=== PATIENT | female | born 1985 | race Caucasian/White ===

== ENCOUNTER 2024-01-17 09:15 | Emergency (ER) | payer OTHER, SELFPAY ==
[2024-01-17] VITALS (7 sets, daily range): BP systolic 110–146; BP diastolic 43–94; PULSE 80–98; RESP 11–20; TEMP 36.3; O2SAT 99–100
--- NOTE | ~2024-01-17 | CT_ITS ---
EXAMINATION: CTA chest PE protocol DATE: 01/17/2024 12:26 INDICATION: Chest pain and shortness of breath TECHNIQUE: Computed tomography (CT) pulmonary angiogram of the chest was performed with 100 mL Omnipa que-350 intravenous contrast. Additional 3D reconstructions utilizing coronal maximum intensity proje ction (MIP) were performed. Automated exposure control and iterative reconstruction technique were em ployed. The dose-length product was 503.84 mGy-cm. COMPARISON: None FINDINGS: No pulmonary embolism. There is a band of discoid atelectasis at the posterior medial right upper lob e. No pneumonia, pulmonary edema, pleural effusion or pneumothorax. Heart size is normal. No pericard ial effusion. Thoracic aorta is normal in caliber with no dissection. No pathologically enlarged thor acic lymphadenopathy. Small sliding-type hiatal hernia. Status post cholecystectomy. Mild upper thora cic levocurvature with mild spondylosis. IMPRESSION: 1. No pulmonary embolism or other acute cardiopulmonary disease. 2. Small sliding-type hiatal hernia. Reviewed, dictated and finalized at location A.
--- NOTE | ~2024-01-17 | XR_ITS ---
EXAMINATION: XR chest 2V DATE: 01/17/2024 09:46 INDICATION: Chest pain. TECHNIQUE: Frontal and lateral views of the chest were obtained. COMPARISON: None. FINDINGS: There is no pneumonia, pleural effusion, or pneumothorax. The heart size is normal. IMPRESSION: 1. No acute cardiopulmonary disease. Reviewed, dictated and finalized at location A.
--- NOTE | 2024-01-17 09:17 | ECG_ITS ---
Measurements Intervals [place] Rate: 97 P: 59 MD: 147 QRS: 66 QRSD: 86 T: 33 QT: 367 QTc: 467 Interpretive Statements SINUS RHYTHM POSSIBLE LEFT ATRIAL ENLARGEMENT BORDERLINE ST-T WAVE ABNORMALITY- ANT/INF LEADS BORDERLINE ECG NO PREVIOUS ECG AVAILABLE FOR COMPARISON Electronically Signed On 01-17-2024 9:36:45 CDT by Tank Keenan D.O.
[2024-01-17 09:36] LABS: Basophils Absolute Auto 0.1 K/mm3 (0.0-0.1); Basophils Percent Auto 0.6 % (0.2-1.2); Eosinophils Absolute Auto 0.4 K/mm3 (0-0.3); Eosinophils Percent Auto 3.3 % (0-4.4); Hematocrit 34.1 % (37.0-47.0); Hemoglobin 11.2 g/dL (12.0-15.0); Immature Granulocyte Absolute 0.08 K/mm3 (0.00-0.031); Immature Granulocyte Percent A 0.8 % (0-0.5); Lymphocytes Absolute Auto 3.03 K/mm3 (0.9-3.2); Lymphocytes Percent Auto 28.9 % (18.3-44.2); Mean Corpuscular HGB Conc 32.8 g/dl (32-36); Mean Corpuscular Hemoglobin 30.5 pg (26-34); Mean Corpuscular Volume 92.9 fl (80-100); Mean Platelet Volume 10.7 fl (7.4-10.4); Monocytes Absolute Auto 0.6 K/mm3 (0.1-0.6); Monocytes Percent Auto 5.3 % (2.6-8.5); Neutrophils Absolute Auto 6.4 K/mm3 (1.3-6.7); Neutrophils Percent Auto 61.1 % (45.5-73.1); Platelet Count Result 320 k/mm3 (150-375); Red Blood Count 3.67 M/mm3 (4.2-5.4); White Blood Count 10.5 K/mm3 (4.5-10.0)
[2024-01-17 09:48] LABS: INR 0.9; Partial Thromboplastin Time 31.1 Seconds (22.3-36.8); Prothrombin Time 12.2 Seconds (11.1-14.7)
[2024-01-17 09:53] LABS: Alanine Aminotransferase 37 U/L (6-35); Albumin Level 3.6 g/dL (3.5-5.1); Alkaline Phosphatase 96 U/L (38-126); Anion Gap 7 mmol/L (4-12); Aspartate Amino Transferase 53 U/L (14-36); Bilirubin,Total 0.4 mg/dL (0.2-1.3); Blood Urea Nitrogen 10 mg/dL (7-17); Carbon Dioxide 22 mmol/L (22-30); Chloride 106 mmol/L (98-107); Estimated CRCL calculation 114 ml/min; Estimated Glomerular Filt Rate > 60; Glucose 164 mg/dL (65-110); Lipase 72 U/L (23-300); Sodium 135 mmol/L (137-145)
[2024-01-17 10:02] LABS: Troponin I < 0.012 ng/mL (0.000-0.034)
--- NOTE | 2024-01-17 10:07 | ED.CHESTPAIN ---
HPI - Chest Pain General Chief Complaint: Chest Pain Stated Complaint: chest heaviness Time Seen by Provider: 01/17/24 10:03 Source: patient Mode of arrival: EMS Limitations: no limitations History of Present Illness HPI narrative: This is a 38 year old female that presents to the ER for chest pain. Reports she woke up this morning with chest discomfort. Reports associated shortness of breath. She has history of methamphetamine abuse and is currently in [place]. Reports some lower extremity edema. Denies fever, cough. Related Data Allergies Allergy/AdvReac Type Severity Reaction Status Date / Time Penicillins Allergy Mild Unknown Verified 01/17/24 13:41 Review of Systems Review of Systems: CONSTITUTIONAL: Denies fever CARDIOVASCULAR: Reports chest pain, and edema. RESPIRATORY: Reports dyspnea. All systems reviewed & are unremarkable except as noted in HPI and below PMFSH Past Medical History Medical History (Updated 01/17/24 @ 14:41 by Melissa Matthew PA-C) History of hypertension Social History Social History (Updated 01/17/24 @ 14:42 by Melissa Matthew PA-C) Substance use: former Substance use type: amphetamines Exam Narrative: GENERAL: Well-appearing, well-nourished, and in no acute distress. HEAD: Normocephalic, atraumatic. EYES: EOMI. CHEST: Clear to auscultation. No respiratory distress. No wheezes rales or rhonchi. Tender to palpation of the chest wall HEART: Regular rate and rhythm. No murmur heard. Normal peripheral pulses. EXTREMITIES: Normal range of motion. No edema. SKIN: Warm, dry, no rash. NEURO: No focal deficits. Alert and oriented x3. PSYCH: Normal mood and affect Course Course Emergency Course: Patient updated on her workup. Resting comfortably after Toradol Vital Signs Vital signs: Vital Signs Pulse Rate 98 01/17/24 09:18 Respiratory Rate 20 01/17/24 09:18 Blood Pressure 135/94 H 01/17/24 09:18 Pulse Oximetry 100 01/17/24 09:18 Oxygen Delivery Room Air 01/17/24 09:18 Pulse Rate 84 01/17/24 11:05 Respiratory Rate 13 01/17/24 11:05 Blood Pressure 146/70 H 01/17/24 09:31 Pulse Oximetry 99 01/17/24 11:05 Oxygen Delivery Room Air 01/17/24 09:52 MDM - Chest Pain MDM Narrative Medical decision making narrative: Patient presents to the emergency department for chest pain ongoing since this morning. She is afebrile and nontoxic appearing. Her vitals are stable. Given a dose of nitro and aspirin EN route without much change. She did receive a dose of Toradol in the ED with relief. Palpation of the area does reproduce her pain. CBC with mild leukocytosis to 10.5. Also shows normocytic anemia with hemoglobin of 11.2. Metabolic panel with mild transaminitis. Lipase is normal. EKG without acute ST changes, baseline and 3 hour troponin are negative. D-dimer elevated, CTA of the chest PE obtained. No evidence for PE or acute cardiopulmonary abnormality. Patient was updated on her workup and agrees with plan of care. Her heart score is 2. She is to follow up with primary provider. She was given warnings to return to the ER Differential Diagnosis Differential diagnosis: Likely stable angina, atypical chest pain, costochondritis and other (pneumonia, PE) Lab Data Attestation: I reviewed the patient's lab results. 01/17/24 09:30 01/17/24 09:30 Labs: Lab Results 01/17/24 01/17/24 Range/Units 09:30 12:38 WBC 10.5 H (4.5-10.0) K/mm3 RBC 3.67 L (4.2-5.4) M/mm3 Hgb 11.2 L (12.0-15.0) g/dL Hct 34.1 L (37.0-47.0) % MCV 92.9 (80-100) fl MCH 30.5 (26-34) pg MCHC 32.8 (32-36) g/dl RDW 14.0 (11.5-14.5) % Plt Count 320 (150-375) k/mm3 MPV 10.7 H (7.4-10.4) fl Immature Gran % (Auto) 0.8 H (0-0.5) % Neut % (Auto) 61.1 (45.5-73.1) % Lymph % (Auto) 28.9 (18.3-44.2) % [place] % (Auto) 5.3 (2.6-8.5) % Eos % (Auto) 3.3 (0-4.4) % Baso % (Auto) 0.6
[2024-01-17 11:19] LABS: NT Pro B Type Natriuretic Pept 216 pg/mL (19.9-100)
[2024-01-17 12:08] LABS: D Dimer 0.59 ug/mL (<0.48)
--- NOTE | 2024-01-17 12:26 | ECG_ITS ---
Measurements Intervals [place] Rate: 89 P: 56 [place]: 157 QRS: 69 QRSD: 88 T: 34 QT: 381 QTc: 464 Interpretive Statements SINUS RHYTHM BASELINE ARTIFACT- III NORMAL ECG COMPARED TO ECG 01/17/2024 09:23:55 T-WAVE ABNORMALITY NOW PRESENT Electronically Signed On 01-17-2024 12:54:44 CDT by Tank Keenan D.O.
[2024-01-17 13:07] LABS: Troponin I < 0.012 ng/mL (0.000-0.034)
[2024-01-17] MEDS: KETOROLAC 15 MG/ML VIAL (*BKC) IV PUSH (13:42)
== END 2024-01-17 14:49 | disposition home or self-care (01) ==
PROVIDERS: Emergency Medicine; Emergency Provider Physician Assistant; PCP Internal Medicine Infectious Disease
DX: R07.89 Other chest pain (principal); I10 Essential (primary) hypertension; F15.10 Other stimulant abuse, uncomplicated; K44.9 Diaphragmatic hernia without obstruction or gangrene
CPT/HCPCS: 36415; 71046; 71275; 80053; 83690; 83880; 84484; 85025; 85380; 85610; 85730; 93005; 96374; 99284; J1885; Q9967

== ENCOUNTER 2024-03-04 21:27 | Emergency (ER) | payer OTHER, SELFPAY ==
[2024-03-04 21:45] VITALS: BP 128/103; PULSE 81; RESP 16; TEMP 36.5; O2SAT 100
[2024-03-04 22:24] LABS: Basophils Absolute Auto 0.1 K/mm3 (0.0-0.1); Basophils Percent Auto 0.4 % (0.2-1.2); Eosinophils Absolute Auto 0.3 K/mm3 (0-0.3); Eosinophils Percent Auto 2.4 % (0-4.4); Hemoglobin 12.2 g/dL (12.0-15.0); Immature Granulocyte Absolute 0.04 K/mm3 (0.00-0.031); Immature Granulocyte Percent A 0.3 % (0-0.5); Lymphocytes Percent Auto 38.8 % (18.3-44.2); Mean Corpuscular Hemoglobin 29.5 pg (26-34); Mean Corpuscular Volume 89.4 fl (80-100); Mean Platelet Volume 10.9 fl (7.4-10.4); Monocytes Absolute Auto 0.7 K/mm3 (0.1-0.6); Monocytes Percent Auto 5.6 % (2.6-8.5); Neutrophils Absolute Auto 6.6 K/mm3 (1.3-6.7); Neutrophils Percent Auto 52.5 % (45.5-73.1); Platelet Count Result 376 k/mm3 (150-375); Red Blood Count 4.14 M/mm3 (4.2-5.4); Red Cell Distribution Width 13.1 % (11.5-14.5); White Blood Count 12.6 K/mm3 (4.5-10.0)
--- NOTE | 2024-03-04 22:26 | ED.PSYCH ---
HPI - Psych General Chief Complaint: Psychiatric Symptoms <Shayna Romano PA-C - Last Filed: 03/05/24 02:58> Stated Complaint: suicidal ideations <Shayna Romano PA-C - Last Filed: 03/05/24 02:58> Time Seen by Provider: 03/04/24 21:53 <Shayna Romano PA-C - Last Filed: 03/05/24 02:58> History of Present Illness HPI Narrative: 39-year-old female with reported history of depression, anxiety, bipolar disorder and PTSD presents to the emergency department for SI. Patient states she has thoughts of wanting to harm herself and has a plan which includes taking too many pills. Patient states she is supposed to be on any psychiatric medications including Cymbalta, Lexapro and BuSpar but has not been taking these medications in approximately 2 months. States she has been using methamphetamines daily for about 2 months, her last use was a couple of days ago. She denies other known drug use but states ?I am not sure with a mix of meth with ?. She reports intermittent alcohol use, her last drink was approximately 3 days ago. She states that she was recently admitted to [facility] and discharged back to [facility] for SI. States she went to [facility] not after taking 8 pills of Lyrica. She was released from [facility] not a few weeks ago and has been hopping between hotel to hotel. She denies HI. No access to firearms. <Shayna Romano PA-C - Last Filed: 03/05/24 02:58> Related Data Allergies/Adverse Reactions: Allergies Allergy/AdvReac Type Severity Reaction Status Date / Time Penicillins Allergy Mild Unknown Verified 03/04/24 22:35 lamotrigine [From Lamictal] Allergy Rash Verified 03/04/24 22:35 <Shayna Romano PA-C - Last Filed: 03/05/24 02:58> Review of Systems Review of Systems: CONSTITUTIONAL: Denies fever, chills, or sweats. EYES: Denies visual changes, redness, or discharge. ENT: Denies rhinorrhea, congestion, sore throat, or otalgia. CARDIOVASCULAR: Denies chest pain, palpitations, or edema. RESPIRATORY: Denies cough or dyspnea. GASTROINTESTINAL: Denies abdominal pain, nausea, vomiting, or diarrhea. GENITOURINARY: Denies dysuria or hematuria. SKIN: Denies rash or itching. MUSCULOSKELETAL: Denies back pain, joint pain, or myalgia. NEUROLOGIC: Denies headache, numbness, or weakness. PSYCHIATRIC: See HPI <Shayna Romano PA-C - Last Filed: 03/05/24 02:58> PMFSH Past Medical History Medical History: Medical History History of hypertension <Shayna Romano PA-C - Last Filed: 03/05/24 02:58> Social History Social History: Social History Substance use: former Substance use type: methamphetamine <Shayna Romano PA-C - Last Filed: 03/05/24 02:58> Exam Narrative: GENERAL: Well-appearing, well-nourished, and in no acute distress. HEAD: Normocephalic, atraumatic. NECK: Supple. CHEST: Clear to auscultation. No respiratory distress. HEART: Regular rate and rhythm. No murmur heard. Normal peripheral pulses. ABDOMEN: Soft, nontender, nondistended, normal active bowel sounds. EXTREMITIES: Normal range of motion. No edema. SKIN: Warm, dry, no rash. NEURO: No focal deficits. Alert and oriented x3 PYSCH: Pleasant and cooperative. Normal mood and affect. Positive SI. Denies HI. <Shayna Romano PA-C - Last Filed: 03/05/24 02:58> Course Course Emergency Course: [facility] 445: Patient was signed out to me pending crisis evaluation. They do not believe the patient warrants inpatient admission. Patient discharged with a safety contract and given outpatient resources. <Rj Llamas MD - Last Filed: 03/05/24 04:52> Vital Signs Vital signs: Vital Signs Temperature 97.7 F 03/04/24 21:45 Pulse Rate 81 03/04/24 21:45 Respiratory Rate 16 03/04/24 21:45 Blood Pressure 128/103 H 03/04/24 21:45 Pulse Oximetry 100
[2024-03-04 22:33] LABS: Appearance Urine Clear (Clear); Bacteria Urine 1+ /hpf; Bilirubin Urine Negative (Negative); Blood Urine Negative (Negative); Color Urine Yellow (Yellow); Glucose Urine UA Negative (Negative); Ketones Urine Trace mg/dL (Negative); Leukocyte Esterase Ur Negative LEU/UL (Negative); Nitrate Urine Negative (Negative); Non Pathogenic Casts 0-2; Protein Urine Trace mg/dL (Negative); RBC Urine 0-2 /hpf (0-2); Squamous Epithelial Cell Urine Occasional /hpf (Few); WBC Urine 0-5 /hpf (0-3); pH Urine 7.5 (5.0-9.0)
[2024-03-04 22:34] LABS: Ethanol < 10 mg/dL (<10)
[2024-03-04 22:35] LABS: Alanine Aminotransferase 18 U/L (6-35); Albumin Level 4.2 g/dL (3.5-5.1); Alkaline Phosphatase 90 U/L (38-126); Anion Gap 8 mmol/L (4-12); Aspartate Amino Transferase 20 U/L (14-36); Bilirubin,Total 0.5 mg/dL (0.2-1.3); Blood Urea Nitrogen 6 mg/dL (7-17); Calcium 8.4 mg/dL (8.4-10.2); Carbon Dioxide 27 mmol/L (22-30); Chloride 106 mmol/L (98-107); Estimated CRCL calculation 83 ml/min; Estimated Glomerular Filt Rate > 60; Glucose 97 mg/dL (65-110); Potassium 3.7 mmol/L (3.4-5.0); Sodium 141 mmol/L (137-145)
[2024-03-04 22:45] LABS: Amphetamine Screen Urine Positive (Negative); Barbiturate Screen Urine Negative (Negative); Benzodiazepines Screen Urine Negative (Negative); Cannabinoid Screen Urine Negative (Negative); Cocaine Screen Urine Negative (Negative); Methadone Screen Urine Negative (Negative); Opiate Screen Urine Negative (Negative); Phencyclidine Screen Urine Negative (Negative)
[2024-03-04 22:54] LABS: Specific Grav Ur 1.035 (1.001-1.035)
[2024-03-04 23:01] LABS: Influenza A QL RT-PCR Negative (Negative); Influenza B QL RT-PCR Negative (Negative); RSV RNA, RT-PCR Negative (Negative); SARS-CoV-2 RNA PCR Negative (Negative)
[2024-03-04 23:05] LABS: Add Urine Microscopic? YES
--- NOTE | 2024-03-05 01:05 | PC.NURSE ---
Pt medically cleared by EDP TITA Porter. Crisis contacted.
[2024-03-05 04:28] VITALS: BP 132/78; PULSE 80; RESP 17; O2SAT 100
[2024-03-05 05:05] VITALS: BP 144/73; PULSE 78; RESP 16; O2SAT 100
== END 2024-03-05 05:06 | disposition home or self-care (01) ==
PROVIDERS: Emergency Provider Physician Assistant; PCP Internal Medicine Infectious Disease
DX: F15.10 Other stimulant abuse, uncomplicated (principal); F31.9 Bipolar disorder, unspecified; I10 Essential (primary) hypertension; Z20.822 Contact with and (suspected) exposure to COVID-19
CPT/HCPCS: 36415; 80053; 80307; 81001; 81025; 84443; 85025; 87637; 99284

== ENCOUNTER 2024-05-23 19:45 | Emergency (ER) | payer OTHER, SELFPAY ==
--- NOTE | ~2024-05-23 | CT_ITS ---
Clinical Indication: Chest pain, shortness of breath CT Scan of the Chest with Contrast: Technique: Contiguous sections were acquired throughout the chest after intravenous administration of 100 cc of Omnipaque 350. Dose reduction technique was used on this scan by utilizing automated expos ure control and iterative reconstruction technique. The dose-length product (DLP) was 479.02 mGy-cm. COMPARISON: 01/17/2024 Findings: There is no evidence of any significant mediastinal, hilar or axillary lymphadenopathy. There is no f illing defect in the pulmonary arterial tree to suggest pulmonary embolus. There is no evidence of ao rtic dissection or aneurysm. There is no evidence of pleural or pericardial effusion. There are focal patchy groundglass opacities, predominantly posteriorly at the lung bases. Images thr ough the upper abdomen reveal small hiatal hernia. Impression: No evidence of pulmonary embolus, aortic dissection, or aortic aneurysm. Small patchy posterior basal groundglass opacities. Findings are consistent with infectious/inflammat ory process, including possibility of Covid 19 pneumonia Reviewed, dictated and finalized at location . Impression: No evidence of pulmonary embolus, aortic dissection, or aortic aneurysm. Small patchy posterior basal groundglass opacities. Findings are consistent wit h infectious/inflammatory process, including possibility of Covid 19 pneumonia
--- NOTE | ~2024-05-23 | XR_ITS ---
Clinical Indication: Covid, cough PA and lateral views of the chest: Comparison: 01/17/2024 Findings: The lungs are clear, without evidence of focal consolidation or pleural effusion. Cardiome diastinal silhouette is within normal limits. Bones and soft tissues are unremarkable. Impression: Normal chest. Reviewed, dictated and finalized at location . Impression: Normal chest.
[2024-05-23 20:12] VITALS: BP 159/100; PULSE 109; RESP 20; TEMP 37.7; O2SAT 100
[2024-05-23 21:14] LABS: SARS-CoV-2 RNA PCR Positive (Negative)
--- NOTE | 2024-05-23 23:21 | ECG_ITS ---
Test Date: 2024-05-23 23:28:48 Measurements Intervals [place] Rate: 98 P: 62 IA: 152 QRS: 73 QRSD: 86 T: 20 QT: 353 QTc: 451 Interpretive Statements SINUS RHYTHM POSSIBLE LEFT ATRIAL ENLARGEMENT [-0.1mV P WAVE IN V1/V2] NONSPECIFIC T-WAVE ABNORMALITY ABNORMAL ECG No previous ECG available for comparison Electronically Signed On 05-24-2024 11:26:03 CDT by Monster Dutton M.D.
[2024-05-23 23:40] VITALS: PULSE 108; RESP 22; TEMP 36.9; O2SAT 100
[2024-05-23 23:41] VITALS: RESP 22; O2SAT 100
--- NOTE | 2024-05-24 00:02 | ED.FEVER ---
HPI - Fever General Chief Complaint: Fever <JOSELYN Calderon Last Filed: 05/24/24 03:29> Stated Complaint: dizzy, cough <JOSELYN Calderon Last Filed: 05/24/24 03:29> Time Seen by Provider: 05/23/24 23:28 <JOSLEYN Calderon Last Filed: 05/24/24 03:29> Source: patient <JOSELYN Calderon Last Filed: 05/24/24 03:29> Mode of arrival: ambulatory <JOSELYN Calderon Last Filed: 05/24/24 03:29> Limitations: no limitations <JOSELYN Calderon Last Filed: 05/24/24 03:29> History of Present Illness HPI Narrative: Patient is a 39-year-old female who presents the ED with multiple complaints. Patient reports over the last 2 days, she has developed cough, congestion, nausea, headache, subjective fevers, lightheadedness. She reports she was recently exposed to someone with COVID-19. She reports having abdominal and chest pain with coughing and a diffuse chest tightness at baseline, shortness of breath - worse with exertion. Denies significant lower extremity swelling or pain. Denies history of CAD or blood clots. Has not taken anything for her symptoms. States she has had COVID before. <JOSELYN Calderon Last Filed: 05/24/24 03:29> Related Data Allergies/Adverse Reactions: Allergies Allergy/AdvReac Type Severity Reaction Status Date / Time Penicillins Allergy Mild Unknown Verified 05/23/24 20:19 lamotrigine [From Lamictal] Allergy Rash Verified 05/23/24 20:19 <JOSELYN Calderon Last Filed: 05/24/24 03:29> Review of Systems Review of Systems: CONSTITUTIONAL: See HPI CARDIOVASCULAR: See HPI RESPIRATORY: See HPI GASTROINTESTINAL: see HPI GENITOURINARY: Denies dysuria or hematuria. MUSCULOSKELETAL: Reports myalgia. NEUROLOGIC: See HPI <JOSELYN Calderon Last Filed: 05/24/24 03:29> All systems reviewed & are unremarkable except as noted in HPI and below <Mee Jimenez PA-C - Last Filed: 05/24/24 03:29> [facility] Past Medical History Medical History: Medical History History of hypertension <Mee Jimenez PA-C - Last Filed: 05/24/24 03:29> Social History Social History: Social History Substance use: former Substance use type: methamphetamine <Mee Jimenez PA-C - Last Filed: 05/24/24 03:29> Exam Narrative: GENERAL: Mildly ill appearing, obese with BMI of 37.8, non-toxic, in no acute distress. HEAD: Normocephalic, atraumatic. RESPIRATORY: Airway patent, respirations nonlabored. Clear to auscultation bilaterally, no rales, rhonchi, wheezing. No significant focal lung sounds. CARDIOVASCULAR: Tachycardic with regular rhythm without murmurs, rubs, or gallops. ABDOMINAL: Soft, nontender, nondistended. Normoactive BS. MUSCULOSKELETAL: Moves all extremities. No gross deformities. No lower extremity edema. No calf tenderness. SKIN: Warm, dry, normal color. NEURO: A&O X3. Speech clear. Cranial nerves II-XII grossly intact. Steady gait. No ataxic movements. PSYCHIATRIC: Appropriate mood and affect. Normal interaction. <Mee Jimenez PA-C - Last Filed: 05/24/24 03:29> Course Vital Signs Vital signs: Vital Signs Temperature 37.7 C H 05/23/24 20:12 Pulse Rate 109 H 05/23/24 20:12 Respiratory Rate 20 05/23/24 20:12 Blood Pressure 159/100 H 05/23/24 20:12 Pulse Oximetry 100 05/23/24 20:12 Oxygen Delivery Room Air 05/23/24 20:12 Temperature 37.1 C 05/24/24 04:14 Pulse Rate 94 05/24/24 06:25 Respiratory Rate 16 05/24/24 06:25 Blood Pressure 138/70 05/24/24 06:25 Pulse Oximetry 97 05/24/24 06:25 Oxygen Delivery Room Air 05/23/24 20:12 <Mee Jimenez PA-C - Last Filed: 05/24/24 03:29> Vital Signs Temperature 37.7 C H 05/23/24 20:12 Pulse Rate 109 H
[2024-05-24 00:48] LABS: Basophils Percent Auto 0.4 % (0.2-1.2); Eosinophils Absolute Auto 0.1 K/mm3 (0-0.3); Eosinophils Percent Auto 0.7 % (0-4.4); Hematocrit 34.4 % (37.0-47.0); Hemoglobin 11.9 g/dL (12.0-15.0); Immature Granulocyte Absolute 0.05 K/mm3 (0.00-0.031); Immature Granulocyte Percent A 0.6 % (0-0.5); Lymphocytes Absolute Auto 0.66 K/mm3 (0.9-3.2); Lymphocytes Percent Auto 7.3 % (18.3-44.2); Mean Corpuscular HGB Conc 34.6 g/dl (32-36); Mean Corpuscular Hemoglobin 30.5 pg (26-34); Mean Corpuscular Volume 88.2 fl (80-100); Mean Platelet Volume 10.1 fl (7.4-10.4); Monocytes Absolute Auto 1.1 K/mm3 (0.1-0.6); Monocytes Percent Auto 11.8 % (2.6-8.5); Neutrophils Absolute Auto 7.1 K/mm3 (1.3-6.7); Neutrophils Percent Auto 79.2 % (45.5-73.1); Platelet Count Result 344 k/mm3 (150-375)
[2024-05-24 00:57] LABS: INR 0.9; Prothrombin Time 12.8 Seconds (11.1-14.7)
[2024-05-24 00:58] LABS: Partial Thromboplastin Time 37.6 Seconds (22.3-36.8)
[2024-05-24] MEDS: ACETAMINOPHEN 500 MG TABLET 1000 MG PO (00:59)
[2024-05-24] MEDS: BENZONATATE 100 MG CAPSULE 200 MG PO (00:59)
[2024-05-24 01:02] LABS: Alanine Aminotransferase 35 U/L (6-35); Albumin Level 4.8 g/dL (3.5-5.1); Alkaline Phosphatase 96 U/L (38-126); Anion Gap 12 mmol/L (4-12); Aspartate Amino Transferase 38 U/L (14-36); Bilirubin,Total 0.6 mg/dL (0.2-1.3); Blood Urea Nitrogen 10 mg/dL (7-17); Calcium 8.6 mg/dL (8.4-10.2); Carbon Dioxide 24 mmol/L (22-30); Chloride 95 mmol/L (98-107); Estimated CRCL calculation 93 ml/min; Estimated Glomerular Filt Rate > 60; Glucose 124 mg/dL (65-110); Magnesium 1.9 mg/dL (1.6-2.3); Potassium 4.3 mmol/L (3.4-5.0); Sodium 131 mmol/L (137-145)
[2024-05-24 01:12] LABS: NT Pro B Type Natriuretic Pept 191 pg/mL (19.9-100); Troponin I < 0.012 ng/mL (0.000-0.034)
[2024-05-24 01:29] LABS: D Dimer 0.72 ug/mL (<0.48)
[2024-05-24] MEDS: SODIUM CHLORIDE 0.9% IV 1,000 ML 999 ML IV CONT (01:29)
[2024-05-24 01:41] VITALS: BP 144/60; PULSE 106; RESP 22; TEMP 38.6; O2SAT 99
[2024-05-24 04:14] VITALS: BP 136/82; PULSE 90; RESP 16; TEMP 37.1; O2SAT 97
[2024-05-24 06:25] VITALS: BP 138/70; PULSE 94; RESP 16; O2SAT 97
== END 2024-05-24 06:26 | disposition home or self-care (01) ==
PROVIDERS: Emergency Medicine; Emergency Provider Physician Assistant; PCP Internal Medicine Infectious Disease
DX: U07.1 COVID-19 (principal); I10 Essential (primary) hypertension
CPT/HCPCS: 36415; 71046; 71275; 80053; 83735; 83880; 84484; 85025; 85380; 85610; 85730; 87635; 93005; 96360; 99284; A9270; J7030; Q9967

== ENCOUNTER 2024-10-03 23:18 | Emergency (ER) | payer OTHER, SELFPAY ==
[2024-10-03 23:29] VITALS: BP 176/96; PULSE 78; RESP 20; TEMP 36.9; O2SAT 97
[2024-10-04 03:18] VITALS: BP 150/72; PULSE 100; RESP 18; TEMP 36.8; O2SAT 99
[2024-10-04 06:06] VITALS: BP 147/95; PULSE 95; RESP 18; TEMP 36.9; O2SAT 100
--- NOTE | 2024-10-04 06:51 | PC.NURSE ---
Pt placed in room 6. Pt states she has had thoughts of harming herself but does not have a plan. Pt states she has been off of her anxiety and depression medication for awhile. Pt states she used meth for 1 week straight with the last time being 2-3 days ago. Pt states she has been trying to get into [facility] for help but has not had an success.
--- NOTE | 2024-10-04 06:54 | PC.NURSE ---
Pt now stating that her plan to harm herself would be to take a bunch of pills.
--- NOTE | 2024-10-04 07:24 | ED_ITS ---
HPI - Psych General Chief Complaint: Psychiatric Symptoms Stated Complaint: psych Time Seen by Provider: 10/04/24 07:00 History of Present Illness HPI Narrative: Patient is homeless, she states that she has anxiety depression has been out of her medications, and also went on a 2 week better using methamphetamines and is coming down for that and now she says that she is suicidal with a plan to overdose on pills Related Data Allergies Allergy/AdvReac Type Severity Reaction Status Date / Time Penicillins Allergy Mild Unknown Verified 05/23/24 20:19 lamotrigine (From Lamictal) Allergy Rash Verified 05/23/24 20:19 Review of Systems 2 Review of Systems: All systems reviewed & are unremarkable except as noted in HPI and below PMFSH Past Medical History Medical History History of hypertension Social History Social History Substance use: former Substance use type: marijuana and amphetamines Exam 2 Narrative: EXAMINATION OF ORGAN SYSTEMS/BODY AREAS: Constitutional: Vital signs per nursing GENERAL:[No acute distress, non-toxic appearing.] HEAD: Normal with no signs of head trauma. EYES: EOMI, conjunctiva normal ENT: Hearing grossly intact LUNGS: Nonlabored breathing. HEART: [Regular rate and rhythm] ABD: [Soft], [nontender to palpation] EXT: Normal range of motion SKIN: [No rashes or lesions.] NEURO: [Alert and oriented x 3. No gross focal sensory or strength deficits.] PSYCH: Normal affect Course Course Emergency Course: Accepted at [facility]; stable for transfer. Vital Signs Vital signs: Vital Signs Temperature 98.4 F 10/03/24 23:29 Pulse Rate 78 10/03/24 23:29 Respiratory Rate 20 10/03/24 23:29 Blood Pressure 176/96 H 10/03/24 23:29 Pulse Oximetry 97 10/03/24 23:29 Oxygen Delivery Room Air 10/03/24 23:29 Temperature 98.7 F 10/04/24 12:08 Pulse Rate 85 10/04/24 12:08 Respiratory Rate 18 10/04/24 12:08 Blood Pressure 129/79 10/04/24 12:08 Pulse Oximetry 99 10/04/24 12:08 Oxygen Delivery Room Air 10/03/24 23:29 MDM - Psych MDM Narrative Medical decision making narrative: Patient is homeless, she states that she has anxiety and depression has been out of her medications, and also went on a 2 week better using methamphetamines and is coming down for that and now she says that she is suicidal with a plan to overdose on pills. Which she initially arrived she stated she just wanted a place out of the hold, then a refill on her medications, which she doctor room she started saying that she was suicidal. No somatic complaints. Normal exam. Medically cleared for psychiatric evaluation. Lab Data 10/04/24 07:32 10/04/24 07:32 Labs: Lab Results 10/04/24 10/04/24 10/04/24 Range/Units 07:20 07:23 07:32 WBC 13.3 H (4.5-10.0) K/mm3 RBC 4.40 (4.2-5.4) M/mm3 Hgb 13.2 (12.0-15.0) g/dL Hct 38.9 (37.0-47.0) % MCV 88.4 (80-100) fl MCH 30.0 (26-34) pg MCHC 33.9 (32-36) g/dl RDW 13.4 (11.5-14.5) % Plt Count 426 H (150-375) k/mm3 MPV 10.8 H (7.4-10.4) fl Immature Gran % (Auto) 0.7 H (0-0.5) % Neut % (Auto) 56.6 (45.5-73.1) % Lymph % (Auto) 33.5 (18.3-44.2) % [place] % (Auto) 6.9 (2.6-8.5) % Eos % (Auto) 1.8 (0-4.4) % Baso % (Auto) 0.5 (0.2-1.2) % Lymph # (Auto) 4.46 H (0.9-3.2) K/mm3 [place] # (Auto) 0.9 H (0.1-0.6) K/mm3 Eos # (Auto) 0.2 (0-0.3) K/mm3 Baso # (Auto) 0.1 (0.0-0.1) K/mm3 Abs Immat Gran (auto) 0.09 H (0.00-0.031) K/mm3 Absolute Neuts (auto) 7.5 H (1.3-6.7) K/mm3 Absolute Nucleated RBC 0.000 (0.0-0.012) K/mm3 Nucleated RBC % 0.0 (0.0-0.2) % Sodium 138 (137-145) mmol/L Potassium 3.4 (3.4-5.0) mmol/L Chloride 103 (98-107) mmol/L Carbon Dioxide 26 (22-30) mmol/L Anion Gap 9 (4-12) mmol/L BUN 11 (7-17) mg/dL Creatinine 0.80 (0.7-1.0) mg/dL Estim Creat Clear Calc 89 ml/min Estimated GFR > 60 (59 - ) Glucose 91 (65-110) mg/dL Calcium 9.1 (8.4-10.2) mg/dL Total Bilirubin 0.6 (0.2-1.3) mg/dL AST 25 (14-36) U/L ALT 27 (6-35) U/L Alkaline Phosphatase 92 (38-126) U/L Total Protein 8.0 (6.3-8.2) g/dL Albumin 4.5 (3.5-5.1) g/dL TSH (Reflex) 2.010 (0.465-4.68) uIU/mL Urine Color Dark yellow (Yellow) Urine Appearance Cloudy H (Clear) Urine pH 5.5 (5.0-9.0) Ur Specific [place] 1.032 (1.001-1.035) Urine Protein 2+ H (Negative) mg/dL Urine Glucose (UA) Negative (Negative) mg/dL Urine Ketones 1+ H (Negative) mg/dL Ur Blood (Man) Negative (Negative) Urine Nitrate Negative (Negative) Urine Bilirubin 1+ H (Negative) Urine Urobilinogen 1.0 (<2.0) mg/dL Leukocyte Esterase Rfl Negative (Negative) JACKIE/UL POC Urine HCG, Qual Negative (Negative) Urine Opiates Screen Negative (Negative) Urine Methadone Screen Negative (Negative) Ur Barbiturates Screen Negative (Negative) Ur Phencyclidine Scrn Negative (Negative) Ur Amphetamine Screen Positive A (Negative) U Benzodiazepines Scrn Negative (Negative) Urine Cocaine Screen Negative (Negative) U Cannabinoids Screen Positive A (Negative) Ethyl Alcohol < 10 (<10) mg/dL Discharge Plan Discharge Clinical Impression: Medication refill, Methamphetamine abuse, Depression Patient Disposition: Psychiatric Hosp Condition: Stable Patient Language: Palauan Prescriptions: No Action benzonatate 200 mg capsule 200 mg PO TID PRN (Reason: cough) Qty: 20 0RF ondansetron 4 mg tablet,disintegrating 4 mg PO Q8H PRN (Reason: nausea and vomiting) Qty: 15 0RF Follow-up/Referrals: Taylor,Jessenia Perez [Primary Care Provider] -
[2024-10-04 07:26] LABS: BEDSIDEPREGUCG Negative (Negative)
[2024-10-04 07:43] LABS: Basophils Absolute Auto 0.1 K/mm3 (0.0-0.1); Basophils Percent Auto 0.5 % (0.2-1.2); Eosinophils Absolute Auto 0.2 K/mm3 (0-0.3); Eosinophils Percent Auto 1.8 % (0-4.4); Hematocrit 38.9 % (37.0-47.0); Hemoglobin 13.2 g/dL (12.0-15.0); Immature Granulocyte Absolute 0.09 K/mm3 (0.00-0.031); Immature Granulocyte Percent A 0.7 % (0-0.5); Lymphocytes Absolute Auto 4.46 K/mm3 (0.9-3.2); Lymphocytes Percent Auto 33.5 % (18.3-44.2); Mean Corpuscular HGB Conc 33.9 g/dl (32-36); Mean Corpuscular Volume 88.4 fl (80-100); Mean Platelet Volume 10.8 fl (7.4-10.4); Monocytes Absolute Auto 0.9 K/mm3 (0.1-0.6); Monocytes Percent Auto 6.9 % (2.6-8.5); Neutrophils Absolute Auto 7.5 K/mm3 (1.3-6.7); Neutrophils Percent Auto 56.6 % (45.5-73.1); Platelet Count Result 426 k/mm3 (150-375); Red Cell Distribution Width 13.4 % (11.5-14.5); White Blood Count 13.3 K/mm3 (4.5-10.0)
[2024-10-04 07:43] LABS: Amphetamine Screen Urine Positive (Negative); Barbiturate Screen Urine Negative (Negative); Benzodiazepines Screen Urine Negative (Negative); Cannabinoid Screen Urine Positive (Negative); Cocaine Screen Urine Negative (Negative); Methadone Screen Urine Negative (Negative); Opiate Screen Urine Negative (Negative); Phencyclidine Screen Urine Negative (Negative)
[2024-10-04 07:53] LABS: Alanine Aminotransferase 27 U/L (6-35); Albumin Level 4.5 g/dL (3.5-5.1); Alkaline Phosphatase 92 U/L (38-126); Anion Gap 9 mmol/L (4-12); Aspartate Amino Transferase 25 U/L (14-36); Bilirubin,Total 0.6 mg/dL (0.2-1.3); Blood Urea Nitrogen 11 mg/dL (7-17); Calcium 9.1 mg/dL (8.4-10.2); Carbon Dioxide 26 mmol/L (22-30); Chloride 103 mmol/L (98-107); Estimated CRCL calculation 89 ml/min; Estimated Glomerular Filt Rate > 60; Ethanol < 10 mg/dL (<10); Glucose 91 mg/dL (65-110); Potassium 3.4 mmol/L (3.4-5.0); Sodium 138 mmol/L (137-145)
[2024-10-04 08:27] LABS: Add Urine Microscopic? YES; Appearance Urine Cloudy (Clear); Bilirubin Urine 1+ (Negative); Blood Urine Negative (Negative); Color Urine Dark Yellow (Yellow); Glucose Urine UA Negative (Negative); Ketones Urine 1+ mg/dL (Negative); Leukocyte Esterase Ur Negative LEU/UL (Negative); Nitrate Urine Negative (Negative); Protein Urine 2+ mg/dL (Negative); Specific Grav Ur 1.032 (1.001-1.035); pH Urine 5.5 (5.0-9.0)
--- NOTE | 2024-10-04 09:44 | PC.NURSE ---
Sitter remains at bedside, pt resting
--- NOTE | 2024-10-04 09:51 | PC.NURSE ---
Crisis arrived to assess pt
--- NOTE | 2024-10-04 10:47 | PC.NURSE ---
social service worker Kelly states pt meets criteria for IP psych treatment. Chart faxed to [facility] & Jeff
[2024-10-04 12:08] VITALS: BP 129/79; PULSE 85; RESP 18; TEMP 37.1; O2SAT 99
--- NOTE | 2024-10-04 12:19 | PC.NURSE ---
1205: Pt accepted at [facility] accepted by Dr. Fernandez. Pt agreeable
== END 2024-10-04 14:30 ==
PROVIDERS: Emergency Provider Emergency Medicine; PCP Internal Medicine Infectious Disease
DX: F32.A Depression, unspecified (principal); F15.10 Other stimulant abuse, uncomplicated; Z76.0 Encounter for issue of repeat prescription; I10 Essential (primary) hypertension; F41.9 Anxiety disorder, unspecified
CPT/HCPCS: 36415; 80053; 80307; 81001; 81025; 82077; 84443; 85025; 99285

== ENCOUNTER 2024-10-25 08:17 | Outpatient (CLI) | payer OTHER, SELFPAY ==
[2024-10-25 08:49] LABS: Basophils Absolute Auto 0.1 K/mm3 (0.0-0.1); Basophils Percent Auto 0.7 % (0.2-1.2); Eosinophils Absolute Auto 0.4 K/mm3 (0-0.3); Hematocrit 36.5 % (37.0-47.0); Immature Granulocyte Absolute 0.07 K/mm3 (0.00-0.031); Immature Granulocyte Percent A 0.8 % (0-0.5); Lymphocytes Absolute Auto 3.26 K/mm3 (0.9-3.2); Lymphocytes Percent Auto 35.4 % (18.3-44.2); Mean Corpuscular HGB Conc 32.9 g/dl (32-36); Mean Corpuscular Hemoglobin 29.4 pg (26-34); Mean Corpuscular Volume 89.5 fl (80-100); Mean Platelet Volume 10.3 fl (7.4-10.4); Monocytes Absolute Auto 0.5 K/mm3 (0.1-0.6); Monocytes Percent Auto 5.6 % (2.6-8.5); Neutrophils Absolute Auto 4.9 K/mm3 (1.3-6.7); Neutrophils Percent Auto 53.5 % (45.5-73.1); Platelet Count Result 332 k/mm3 (150-375); Red Blood Count 4.08 M/mm3 (4.2-5.4); Red Cell Distribution Width 13.6 % (11.5-14.5); White Blood Count 9.2 K/mm3 (4.5-10.0)
[2024-10-25 09:27] LABS: Alanine Aminotransferase 30 U/L (6-35); Albumin Level 4.1 g/dL (3.5-5.1); Alkaline Phosphatase 107 U/L (38-126); Anion Gap 2 mmol/L (4-12); Aspartate Amino Transferase 31 U/L (14-36); Bilirubin,Total 0.6 mg/dL (0.2-1.3); Blood Urea Nitrogen 11 mg/dL (7-17); Calcium 8.6 mg/dL (8.4-10.2); Carbon Dioxide 31 mmol/L (22-30); Chloride 104 mmol/L (98-107); Cholesterol 243 mg/dL (0-200); Estimated Glomerular Filt Rate > 60; Glucose 103 mg/dL (65-110); HDL Direct 44 mg/dL; Potassium 4.1 mmol/L (3.4-5.0); Sodium 137 mmol/L (137-145); Triglycerides 417 mg/dL (<150)
[2024-10-25 09:35] LABS: Hemoglobin A1C 5.5 % (<5.7)
[2024-10-25 09:37] LABS: LDL Cholesterol Direct 134 mg/dL
[2024-10-25 09:50] LABS: Free T4 Free Thyroxine 0.74 ng/dL (0.78-2.19)
[2024-10-25 09:55] LABS: Vitamin D 25 Hydroxy < 12.8 ng/mL
[2024-10-29 14:28] LABS: NIL 0.02 IU/mL; Quantiferon TB Plus, 1T NEGATIVE (NEGATIVE)
== END 2024-10-25 08:18 | disposition home or self-care (01) ==
LOC: ANHLAB 08:20
PROVIDERS: PCP Internal Medicine; Visit Provider Nurse Practitioner Family
DX: Z00.00 Encounter for general adult medical examination without abnormal findings (principal); E55.9 Vitamin D deficiency, unspecified; E78.5 Hyperlipidemia, unspecified; I10 Essential (primary) hypertension; Z13.0 Encounter for screening for diseases of the blood and blood-forming organs and certain disorders involving the immune mechanism; Z13.228 Encounter for screening for other metabolic disorders
CPT/HCPCS: 36415; 80053; 80061; 82306; 83036; 84439; 84443; 85025; 86480

== ENCOUNTER 2025-06-30 11:09 | Emergency (ER) | payer OTHER, MEDICAID, SELFPAY ==
[2025-06-30 11:15] VITALS: BP 172/76; PULSE 100; RESP 18; TEMP 36.8; O2SAT 97
--- OUTSIDE RECORDS SUMMARY | 2025-06-30 11:35 | XMS_ITS | Clinical Summary ---
Author Organization [facility] [employer] Address [address] [place] [address] Care Team Providers Care Sash Maker Name Role Phone Unavailable Primary Care Provider Unavailabl e Source Comments [facility],non-owned Affiliates and Associated Physician Practices is amultiple site organization consisting of ambulatory clinics and hospital sitesin [place], [place], [place] and [place]. This disclosure is being madepursuant to the Care Everywhere program and may not contain all information available regarding this patient. Last updated 18.[facility] [employer] Allergies No known active allergies Medications * Be aware that medications may not be up to date on this document. Alwaysverify current medications with the patient. 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 Gender Identity Female 03/22/2023 11:53 AM CDT Sexual Orientation Not on file Plan of Treatment Health Maintenance Due Date Last Done Comments LIPID TESTING 1983 MAMMOGRAM 1983 HIV SCREENING 1998 HEPATITIS C SCREENING 02/19/2001 DTAP/TDAP/TD VACCINES (1 - Tdap) 2002 HEPATITIS B VACCINE (1 of 3 - 19+ 3-dose series) 2002 PAP SMEAR 02/25/2004 HPV VACCINE (1 - 3-dose SCDM series) 2010 COVID-19 VACCINE (2023-2 5 season) 2024 DEPRESSION SCREENING 10/23/2024 INFLUENZA VACCINE (#1) 2025 ZOSTER VACCINE (1 of 2) 2033 HIB VACCINE Aged Out No longer eligi ble based on patient's age to complete this topic MENINGOCOCCAL (Group B) VACC INE SHARED DECISION-MAKING Aged Out No longer eligibl e based on patient's age to complete this topic MENINGOCOCCAL GROUPS A/C/Y/W VACCINE Aged Out No longer eligible b ased on patient's age to complete this topic PNEUMOCOCCAL VACCINE Aged Out No long er eligible based on patient's age to complete this topic Insurance [facility]
--- NOTE | 2025-06-30 12:06 | ED.SKABFB ---
HPI - Skin/Abscess/Foreign Bdy General Chief complaint: Skin/Abscess/Foreign Body Stated complaint: abscess in mouth Time Seen by Provider: 06/30/25 11:22 Source: patient Mode of arrival: ambulatory Limitations: no limitations History of Present Illness HPI narrative: Patient is a 40-year-old female who presents the ED with concern for dental abscess. Patient reports she has had a persistent dental abscess to her upper midline gum for the past 1 month. States she has been on a round of clindamycin, but denied improvement. Does not currently have a dentist. Currently residing at [facility] for rehab. Denies difficulty breathing or swallowing, fevers. Related Data Allergies Allergy/AdvReac Type Severity Reaction Status Date / Time Penicillins Allergy Mild Unknown Verified 06/30/25 11:11 amoxicillin (From Amoxil) Allergy Rash Verified 06/30/25 11:11 lamotrigine (From Lamictal) Allergy Rash Verified 06/30/25 11:11 Review of Systems Review of Systems: All systems reviewed & are unremarkable except as noted in HPI. All systems reviewed & are unremarkable except as noted in HPI and below PMFSH Past Medical History Medical History History of hypertension Social History Social History Substance use: former Substance use type: marijuana and amphetamines Exam Narrative: GENERAL: Well appearing, morbidly obese with BMI of 44.9, non-toxic, in no acute distress. HEAD: Normocephalic, atraumatic. ENT: Diffuse dental decay, scattered dental caries. Localized fluctuant area along upper gumline near midline frenulum. Small pustular area over fluctuant region with active purulent drainage, focal TTP. RESPIRATORY: Airway patent, respirations nonlabored. CARDIOVASCULAR: Regular rate and rhythm MUSCULOSKELETAL: Moves all extremities. No gross deformities. SKIN: Warm, dry, normal color. NEURO: A&O X3. Speech clear. PSYCHIATRIC: Appropriate mood and affect. Normal interaction. Course Vital Signs Vital signs: Vital Signs Temperature 98.3 F 06/30/25 11:15 Pulse Rate 100 06/30/25 11:15 Respiratory Rate 18 06/30/25 11:15 Blood Pressure 172/76 H 06/30/25 11:15 Pulse Oximetry 97 06/30/25 11:15 Oxygen Delivery Room Air 06/30/25 11:15 Temperature 98.3 F 06/30/25 11:15 Pulse Rate 100 06/30/25 11:15 Respiratory Rate 18 06/30/25 11:15 Blood Pressure 172/76 H 06/30/25 11:15 Pulse Oximetry 97 06/30/25 11:15 Oxygen Delivery Room Air 06/30/25 11:15 Procedures Abscess I/D oral: Date of Incision: 06/30/25 Time of Incision: 12:35 Sedation/analgesia: none Local Anesthetic: lidocaine 1% Amount of anesthesia used (mL): 3 Technique: needle aspiration Amount of fluid expressed (mL): 1 Irrigation: Yes Packing used?: none I&D Results: Pus and Blood Complications: other (none) MDM - Skin/Abscess/Foreign Bdy MDM Narrative Medical decision making narrative: Exam consistent with actively draining dental abscess. I&D performed to allow for additional drainage. Will be placed on abx. Advised to follow-up closely with dentist for further evaluation. No signs of airway compromise or respiratory distress. Given return precautions. D/C in stable condition. Medical Records Attestation: I reviewed the patient's medical records. Discharge Plan Discharge Clinical Impression: Dental abscess Patient Disposition: Home Condition: Stable Instructions: Antibiotic Form, Dental Abscess (ED), Mouth Care (ED) Additional Instructions: Take antibiotics as prescribed for dental abscess. Continue using antibiotic mouthwash as prescribed. Stay well hydrated. Recommend Tylenol/ibuprofen as needed for pain. Follow-up with dentist for further evaluation. Return for new or worsening concerns. Patient Language: Vietnamese Prescriptions: New cefdinir 300 mg capsule 300 mg PO Q12H 7 Days Qty: 14 0RF metronidazole 500 mg tablet 500 mg PO Q8H 7 Days Qty: 21 0RF No Action benzonatate 200 mg capsule 200 mg PO TID PRN (Reason: cough) Qty: 20 0RF ondansetron 4 mg tablet,disintegrating 4 mg PO Q8H PRN (Reason: nausea and vomiting) Qty: 15 0RF Follow-up/Referrals: Chiki Rogers MD [Primary Care Provider, Hospitalist] Time of Disposition: 12:41
--- OUTSIDE RECORDS SUMMARY | 2025-06-30 12:07 | XMS_ITS | Clinical Summary ---
Author Organization [facility] [employer] Address [address] [place] [address] Care Team Providers Care Housekeeping Cleaner Name Role Phone Unavailable Primary Care Provider Unavailabl e Source Comments [facility],non-owned Affiliates and Associated Physician Practices is amultiple site organization consisting of ambulatory clinics and hospital sitesin [place], [place], [place] and [place]. This disclosure is being madepursuant to the Care Everywhere program and may not contain all information available regarding this patient. 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
== END 2025-06-30 13:19 | disposition home or self-care (01) ==
PROVIDERS: Emergency Provider Physician Assistant; PCP Internal Medicine
DX: K04.7 Periapical abscess without sinus (principal); I10 Essential (primary) hypertension
CPT/HCPCS: 41800; 99283; J2003

== ENCOUNTER 2025-07-01 09:48 | Emergency (ER) | payer OTHER, MEDICAID, SELFPAY ==
[2025-07-01 10:10] VITALS: BP 158/94; PULSE 95; RESP 17; TEMP 36.4; O2SAT 100
--- NOTE | 2025-07-01 10:52 | ECG_ITS ---
Test Date: 2025-07-01 11:01:05 Measurements Intervals [place] Rate: 89 P: 54 MA: 153 QRS: 56 QRSD: 86 T: 59 QT: 384 QTc: 468 Interpretive Statements SINUS RHYTHM LEFT ATRIAL ENLARGEMENT [-0.15mV P-WAVE IN V1/V2] NONSPECIFIC T-WAVE ABNORMALITY ABNORMAL ECG Compared to ECG 05/23/2024 23:28:48 No significant changes Electronically Signed On 07-02-2025 15:44:11 CDT by Monster Dutton M.D.
--- OUTSIDE RECORDS SUMMARY | 2025-07-01 11:01 | XMS_ITS | Clinical Summary ---
Author Organization [facility] [employer] Address [address] [place] [address] Care Team Providers Care Yard Coupler Name Role Phone Unavailable Primary Care Provider Unavailabl e Source Comments [facility],non-owned Affiliates and Associated Physician Practices is amultiple site organization consisting of ambulatory clinics and hospital sitesin [place], [place], [place] and [place]. This disclosure is being madepursuant to the Care Everywhere program and may not contain all information available regarding this patient. 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
--- OUTSIDE RECORDS SUMMARY | 2025-07-01 11:01 | XMS_ITS | Clinical Summary ---
Author Organization [facility] Address [address] [place] [address] Care Team Providers Care Financial Accountant Name Role Phone Chiki Rogers MD Primary Care Provider [phone] Allergies Active Allergy Reactions Criticality Noted Date Comments Amoxicillin Unknown 05/03/2024 Lamotrigine Rash Low 05/03/2024 Penicillins Unknown 05/03/2024 Strawberries Rash,Vomiting Low 05/03/2024 Social History Tobacco Use Types Packs/Day Years Used Date Smoking Tobacco: Every Day Cigarettes Smokeless Tobacco: Never Tobacco Cessation:Ready to Q uit: Not Asked; Counseling Given: Not Answered Alcohol Use Standard Drinks/Week Comments Never 0 (1 standard drink = 0.6 oz pur e alcohol) Comments Unknown Sex and Gender Information Value Date Recorded Sex Assigned at Not on file Legal Sex Female 11:38 AM CDT Gender Identity Not on file Sexual Orientation Not on file Last Filed Vital Signs Vital Sign Reading Time Taken Comments Blood Pressure 159/95 05/03/2024 8:34 PM CDT Pulse 72 05/03/2024 8:34 PM CDT Temperature 36.7 C (98 F) 05/03/2024 11:39 AM CDT Respiratory Rate 18 05/03/2024 8:34 PM CDT Oxygen Saturation 100% 05/03/2024 11:39 AM CDT Inhaled Oxygen Concentration - - Weight 77.1 kg (170 lb) 05/03/2024 11:39 AM CDT Height 154.9 cm (5' 1) 05/03/2024 11:39 AM CDT Body Mass Index 32.12 05/03/2024 11:39 AM CDT Plan of Treatment Health Maintenance Due Date Last Done Comments Cervical Cancer Screening Pa p Smear (Age 30 to 64) Every 3 Years 1983 Annual Physical 1986 Hepatitis C 2001 Hepatitis B Vaccines (1 of 3 - 19+ 3-dose series) 2002 Pneumococcal Vaccine: Pediat rics (0 to 5 Years) and At-Risk Patients (6 to 49 Years) (1 of 2 - PCV) 2002 HPV Vaccines (1 - 3-dose SCD M series) 2010 Cervical Cancer Screening Pa p with HPV Testing (Age 30 to 64) Every 5 Years 2013 Cervical Cancer Screening with HPV 2013 Mammogram Screening 2023 DTaP, Tdap and Td Vaccines ( 2 - Td or Tdap) 10/23/2024 10/23/2014 COVID-19 Vaccine (2023-2 5 season) 2025 Meningococcal B Vaccine Aged Out No l onger eligible based on patient's age to complete this topic Meningococcal Vaccine Aged Out No froilan sacha eligible based on patient's age to complete this topic RSV Immunizations Under 20 Months Aged Out No longer eligible based on patient's age to complete this topic Insurance [employer] Care Teams Financial Accountant Relationship Specialty Start Date End Date Chiki Rogers MD [address] [place] [phone] PCP - General INTERNAL MEDICINE 05/03/24
[2025-07-01 11:18] VITALS: BP 154/95; PULSE 96; RESP 18; TEMP 36.6; O2SAT 98
[2025-07-01 11:24] LABS: BEDSIDEPREGUCG Negative (Negative)
[2025-07-01 11:29] LABS: Hematocrit 34.2 % (37.0-47.0); Hemoglobin 11.4 g/dL (12.0-15.0); Immature Granulocyte Percent A 0.3 % (0-0.5); Immature Platelet Fraction Pct 3.3 % (0.9-11.2); Lymphocytes Absolute Auto 3.37 K/mm3 (0.9-3.2); Mean Corpuscular HGB Conc 33.3 g/dl (32-36); Mean Corpuscular Hemoglobin 29.4 pg (26-34); Mean Corpuscular Volume 88.1 fl (80-100); Nucleated Red Blood Cells Absolute Auto 0.000 K/mm3 (0.0-0.012); Nucleated Red Blood Cells Perc 0.0 % (0.0-0.2); Platelet Count Result 346 k/mm3 (150-375); Red Blood Count 3.88 M/mm3 (4.2-5.4); White Blood Count 11.5 K/mm3 (4.5-10.0)
[2025-07-01 11:33] LABS: Add Urine Microscopic? YES; Appearance Urine Clear (Clear); Glucose Urine UA 2+ mg/dL (Negative); Leukocyte Esterase Ur Trace LEU/UL (Negative); Nitrate Urine Negative (Negative); Non Pathogenic Casts 0-2; Specific Grav Ur 1.022 (1.001-1.035)
[2025-07-01 11:47] LABS: Alanine Aminotransferase 24 U/L (6-35); Anion Gap 10 mmol/L (4-12); Blood Urea Nitrogen 12 mg/dL (7-17); Calcium 8.9 mg/dL (8.4-10.2); Carbon Dioxide 25 mmol/L (22-30); Chloride 104 mmol/L (98-107); Estimated CRCL calculation 115 ml/min; Estimated Glomerular Filt Rate > 60; Glucose 99 mg/dL (65-110); Sodium 139 mmol/L (137-145)
[2025-07-01 11:56] LABS: Albumin Level 4.5 g/dL (3.5-5.1); Alkaline Phosphatase 89 U/L (38-126); Aspartate Amino Transferase 29 U/L (14-36); Bilirubin,Total 0.7 mg/dL (0.2-1.3); Potassium 4.1 mmol/L (3.4-5.0); Total Protein 7.4 g/dL (6.3-8.2)
[2025-07-01 12:30] VITALS: BP 152/96; PULSE 78; RESP 16; TEMP 36.6; O2SAT 100
--- NOTE | 2025-07-01 13:23 | ED_ITS ---
HPI - General Adult General Chief complaint: Recheck/Abnormal Lab/Rx Stated complaint: high bp Time Seen by Provider: 07/01/25 11:49 History of Present Illness HPI narrative: 40-year-old female presented to the emergency department for evaluation for hypertension. Patient is residing at [facility] for rehab with the moment. Patient does take amlodipine and clonidine. Patient reports she had elevated blood pressure this morning. But blood pressure was running approximately 2025 systolic per the patient but is significantly improved and is approximately 150 in the emergency department today. Patient denies any current chest pain or shortness of breath. Patient is well-appearing time of evaluation. Related Data Allergies Allergy/AdvReac Type Severity Reaction Status Date / Time Penicillins Allergy Mild Unknown Verified 06/30/25 11:11 amoxicillin (From Amoxil) Allergy Rash Verified 06/30/25 11:11 lamotrigine (From Lamictal) Allergy Rash Verified 06/30/25 11:11 Review of Systems 2 Review of Systems: All systems reviewed & are unremarkable except as noted in HPI and below PMFSH Past Medical History Medical History History of hypertension Social History Social History Substance use: former Substance use type: marijuana and amphetamines Exam 2 Narrative: APPEARANCE: Well appearing, no pain, no distress, well-nourished. HEAD: normocephalic, atraumatic. EYES: PERRLA/EOMI, conjunctivae clear. NOSE: Normal no drainage EARS:TMS clear with good light reflex. THROAT: Pharynx clear, no exudate. NECK: Supple. No adenopathy, no masses. RESPIRATORY: Airway patent, respirations nonlabored. Clear to auscultation bilaterally, no rales, rhonchi, wheezing. CARDIOVASCULAR: Regular rate and rhythm without murmurs rubs or gallops. ABDOMINAL: Soft, nontender, nondistended, normal bowel sounds MUSCULOSKELETAL: Moves all extremities. Strength/ROM intact, No edema, No calf tenderness. NEURO: Alert. Cranial nerves II through XII intact. Good gait. Good coordination SKIN: Warm, dry. Normal Color Course Vital Signs Vital signs: Vital Signs Temperature 97.6 F 07/01/25 10:10 Pulse Rate 95 09/09/25 10:10 Respiratory Rate 17 07/01/25 10:10 Blood Pressure 158/94 H 07/01/25 10:10 Pulse Oximetry 100 07/01/25 10:10 Oxygen Delivery Room Air 07/01/25 10:10 Temperature 97.9 F 07/01/25 12:30 Pulse Rate 90 07/01/25 13:52 Respiratory Rate 20 07/01/25 13:52 Blood Pressure 163/82 H 07/01/25 13:52 Pulse Oximetry 100 07/01/25 13:52 Oxygen Delivery Room Air 07/01/25 10:10 Medical Decision Making MDM Narrative Medical decision making narrative: 40-year-old female presents emergency department for evaluation for elevated blood pressure this morning. Upon arrival emergency department patient's blood pressures are controlled. Patient did take her 5 mg amlodipine and her 0.1 clonidine. Patient is afebrile but does have a leukocytosis 11.5 and hemoglobin 11.4. No acute abnormalities on her CMP UA was negative for infection. EKG showed normal sinus rhythm. Case was discussed with the patient's primary care physician and they were comfortable with plan to increase the patient's amlodipine to 10 mg. A prescription was written for this. Patient was updated on the medication change. All questions concerns were addressed patient was well-appearing at time of discharge. Differential Diagnosis Differential Diagnosis: Hypertension, acute kidney injury, hypertensive crisis, hypertensive urgency Vital Signs Vital Signs: Vital Signs Temperature 97.6 F 07/01/25 10:10 Pulse Rate 95 07/01/25 10:10 Respiratory Rate 17 07/01/25 10:10 Blood Pressure 158/94 H 07/01/25 10:10 Pulse Oximetry 100 07/01/25 10:10 Oxygen Delivery Room Air 07/01/25 10:10 Temperature 97.9 F 07/01/25 12:30 Pulse Rate 90 07/01/25 13:52 Respiratory Rate 20 07/01/25 13:52 Blood Pressure 163/82 H 07/01/25 13:52 Pulse Oximetry 100 07/01/25 13:52 Oxygen Delivery Room Air 07/01/25 10:10 Lab Data Lab results reviewed: Yes I reviewed the patient's lab results. 07/01/25 11:17 07/01/25 11:17 Labs: Lab Results 07/01/25 07/01/25 Range/Units 11:17 11:22 WBC 11.5 H (4.5-10.0) K/mm3 RBC 3.88 L (4.2-5.4) M/mm3 Hgb 11.4 L (12.0-15.0) g/dL Hct 34.2 L (37.0-47.0) % MCV 88.1 (80-100) fl MCH 29.4 (26-34) pg MCHC 33.3 (32-36) g/dl RDW 13.9 (11.5-14.5) % Plt Count 346 (150-375) k/mm3 MPV 10.2 (7.4-10.4) fl Immature Gran % (Auto) 0.3 (0-0.5) % Neut % (Auto) 60.5 (45.5-73.1) % Lymph % (Auto) 29.3 (18.3-44.2) % [place] % (Auto) 7.2 (2.6-8.5) % Eos % (Auto) 2.2 (0-4.4) % Baso % (Auto) 0.5 (0.2-1.2) % Lymph # (Auto) 3.37 H (0.9-3.2) K/mm3 [place] # (Auto) 0.8 H (0.1-0.6) K/mm3 Eos # (Auto) 0.3 (0-0.3) K/mm3 Baso # (Auto) 0.1 (0.0-0.1) K/mm3 Abs Immat Gran (auto) 0.04 H (0.00-0.031) K/mm3 Absolute Neuts (auto) 7.0 H (1.3-6.7) K/mm3 Absolute Nucleated RBC 0.000 (0.0-0.012) K/mm3 Nucleated RBC % 0.0 (0.0-0.2) % % Immature Plt Fraction 3.3 (0.9-11.2) % Sodium 139 (137-145) mmol/L Potassium 4.1 (3.4-5.0) mmol/L Chloride 104 (98-107) mmol/L Carbon Dioxide 25 (22-30) mmol/L Anion Gap 10 (4-12) mmol/L BUN 12 (7-17) mg/dL Creatinine 0.62 L (0.7-1.0) mg/dL Estim Creat Clear Calc 115 ml/min Estimated GFR > 60 (59 - ) Glucose 99 (65-110) mg/dL Calcium 8.9 (8.4-10.2) mg/dL Total Bilirubin 0.7 (0.2-1.3) mg/dL AST 29 (14-36) U/L ALT 24 (6-35) U/L Alkaline Phosphatase 89 (38-126) U/L Total Protein 7.4 (6.3-8.2) g/dL Albumin 4.5 (3.5-5.1) g/dL Urine Color Yellow (Yellow) Urine Appearance Clear (Clear) Urine pH 5.5 (5.0-9.0) Ur Specific [place] 1.022 (1.001-1.035) Urine Protein Negative (Negative) mg/dL Urine Glucose (UA) 2+ H (Negative) mg/dL Urine Ketones Negative (Negative) mg/dL Ur Blood (Man) Negative (Negative) Urine Nitrate Negative (Negative) Urine Bilirubin Negative (Negative) Urine Urobilinogen 0.2 (<2.0) mg/dL Leukocyte Esterase Rfl Trace H (Negative) JACKIE/UL Urine RBC 0-2 (0-2) /hpf Urine WBC 0-5 (0-3) /hpf Ur Squamous Epith Cells Few (Few) /hpf Urine Bacteria None seen /hpf Urine Casts 0-2 POC Urine HCG, Qual Negative (Negative) ECG Data EKG #1: EKG Interpretation: normal rate, sinus rhythm, no ectopy, non-specific ST changes, normal QRS and NL axis Discharge Plan Discharge Clinical Impression: Hypertension Patient Disposition: Home Condition: Stable Instructions: Antibiotic Form, Hypertension (ED) Additional Instructions: Your amlodipine is being increased from 5 mg to 10 mg. Continue to have close follow-up with your primary care physician. Patient Language: Tristanian Prescriptions: New amlodipine 10 mg tablet 10 mg PO DAILY 30 Days Qty: 30 0RF No Action benzonatate 200 mg capsule 200 mg PO TID PRN (Reason: cough) Qty: 20 0RF ondansetron 4 mg tablet,disintegrating 4 mg PO Q8H PRN (Reason: nausea and vomiting) Qty: 15 0RF cefdinir 300 mg capsule 300 mg PO Q12H 7 Days Qty: 14 0RF metronidazole 500 mg tablet 500 mg PO Q8H 7 Days Qty: 21 0RF Follow-up/Referrals: Chiki Rogers MD [Primary Care Provider, Hospitalist]
--- OUTSIDE RECORDS SUMMARY | 2025-07-01 13:33 | XMS_ITS | Clinical Summary ---
Author Organization [facility] Address [address] [place] [address] Care Team Providers Care Poultry Scientist Name Role Phone Chiki Rogers MD Primary Care Provider [phone] Allergies Active Allergy Reactions Criticality Noted Date [...] complete this topic Insurance [employer] Care Teams Poultry Scientist Relationship Specialty Start Date End Date Chiki Rogers MD [address] [place] [phone] PCP - General INTERNAL MEDICINE 05/03/24
--- OUTSIDE RECORDS SUMMARY | 2025-07-01 13:33 | XMS_ITS | Clinical Summary ---
Author Organization [facility] [employer] Address [address] [place] [address] Care Team Providers Care Hvac Services Professional Name Role Phone Unavailable Primary Care Provider Unavailabl e Source Comments [facility],non-owned Affiliates and Associated Physician Practices is amultiple site organization consisting of ambulatory clinics and hospital sitesin [place], [place], [place] and [place]. This disclosure is being madepursuant to the Care Everywhere program and may not contain all information available regarding this patient. Last updated 18.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
[2025-07-01 13:52] VITALS: BP 163/82; PULSE 90; RESP 20; O2SAT 100
== END 2025-07-01 13:54 | disposition home or self-care (01) ==
PROVIDERS: Emergency Provider Emergency Medicine; PCP Internal Medicine
DX: I10 Essential (primary) hypertension (principal); Z79.899 Other long term (current) drug therapy
CPT/HCPCS: 36415; 80053; 81001; 81025; 85025; 85055; 93005; 99283; A9270